=== PATIENT | male | born 1940 | race Two or more races ===

== ENCOUNTER 2019-03-04 13:47 | Inpatient (IN) | payer OTHER ==
[~2019-03-04] VITALS: Ht 157.5 cm; Wt 65.8 kg
--- OUTSIDE RECORDS SUMMARY | 2019-03-04 13:49 | XMS REPORT ---
Author Author [facility] Address Unknown Phone Unavailable Care Team Providers Care Radio Equipment Repairer Name Role Phone Sharon MCCARTNEY Unavailable Unavailable Problems This patient has no known problems. Allergies, Adverse Reactions, Alerts This patient has no known allergies or adverse reactions. Medications This patient has no known medications. Results Test Description Test Time Test Comments Text Results Atomic Results Result Comments TISSUE EXAM 2018-03-27 19:51:00 Surgical Pathology Report Case: [id number] Authorizing Provider: Elmer Mccartney MD Collected: 03/25/2018 0917 Ord ering Location: [facility] Endoscopy Received: 03/25/2018 1542 Services Pathologist: Hilton Mendoza MD Specimens: A) - Duodenum, bx B) - Stomach, bx A. DUODENUM, BIOPSY:- NO DIAGNOSTIC ALTERATIONSB. STOMACH, BIOPSY:- CHRONIC ACTIVE GASTRITIS, MILD TO MODERATE- NEGATIVE FOR HELICOBACTER PYLORI ORGANISMS, BY WARSTEVEN HAY AND IMMUNOHISTOCHEMISTRY Signing Pathologist Direct Phone Line: [phone] signed by Hilton Mendoza MD on 03/27/2018 at 7:51 [id number], [id number] abdominal pain, chronic pancreatitis A. Duodenum biopsy; B. Stomach biopsyThe specimen is received in two containers of formalin both labeled with the patient's information. Part A labeled "duodenum" consists of multiple fragments mulligan tissue ranging from 0.2 to 0.3 cm, submitted A1. Part B labeled "stomach biopsy" consists of multiple fragments of mulligan-red soft tissue ranging from 0.1 to 0.5 cm, submitted B1. CG/pl A-B. Performed.The following special studies were performed on this case and the interpretation is incorporated in the diagnostic report above: Warthin-starry stain (Block B1)- negativeH. Pylori IHC (Block B1)-- negativeThe immunohistochemistry test was developed and its performance characteristics determined by [facility], Pathology Laboratory. It has not been cleared or approved by the U.S. Food and Drug Administration. The FDA has determined that such clearance or approval is not necessary. The test is used for clinical purposes. It should not be regarded as investigational or for research. This laboratory is certified under the Clinical Laboratory Improvement Amendments of 1988 (CLIA-88) as qualified to perform high complexity clinical laboratory testing. POCT-GLUCOSE METER 2018-03-25 09:51:00 POC-GLUCOSE METER ([employer]) (test fjjf=2826) 111 mg/dL 70-110 TESTED AT [place] [address] POCT-GLUCOSE [id number] 08:30:00* Test Item Value Reference Range Comments POC-GLUCOSE METER ([employer]) (test nyxm=7412) 124 mg/dL 70-110 TESTED AT [place] [address]
[2019-03-04] MEDS ORDERED: SODIUM CHLORIDE 0.9% 1000ML 1,000 ML IV STA (14:26)
[2019-03-04] MEDS ORDERED: PANTOPRAZOLE 40 MG 10ML VIAL IV STA (14:26)
[2019-03-04] MEDS ORDERED: ONDANSETRON HCL INJ 2MG/ML 2ML 2 MG/ML VIAL IV STA (14:26)
[2019-03-04] MEDS ORDERED: SODIUM CHLORIDE 0.9% 1000ML 500 ML IV STA (14:26)
[2019-03-04] MEDS ORDERED: MORPHINE SULFATE INJ 4 MG/ML INJ 1ML IV STA (14:26)
[2019-03-04 14:53] LABS: BASOPHILS % 0.4 % (0.0-1.0); EOSINOPHILS # (AUTO) 0.2 (0.0-0.4); EOSINOPHILS % 1.6 % (0.0-6.0); HEMATOCRIT 42.6 % (38.2-49.6); HEMOGLOBIN 13.7 g/dL (14.0-18.0); LYMPHOCYTES # (AUTO) 4.6 (1.0-3.2); LYMPHOCYTES % 48.4 % (18.0-39.1); MEAN CORPUSCULAR HEMOGLOBIN 27.1 pg (28-32); MEAN CORPUSCULAR HGB CONC 32.2 g/dL (31-35); MEAN CORPUSCULAR VOLUME 84.2 fL (81-99); MONOCYTES # (AUTO) 0.5 (0.2-0.8); MONOCYTES % 5.3 % (4.4-11.3); NEUTROPHILS # (AUTO) 4.2 (2.1-6.9); PLATELET COUNT 198 x10e3/uL (140-360); RED BLOOD COUNT 5.06 x10e6/uL (4.3-5.7); RED CELL DISTRIBUTION WIDTH 13.2 % (11.7-14.4)
[2019-03-04 14:55] LABS: BILIRUBIN,URINE NEGATIVE (NEGATIVE); CLARITY,URINE CLEAR (CLEAR); COLOR,URINE YELLOW (YELLOW); KETONES,URINE NEGATIVE (NEGATIVE); LEUKOCYTE ESTERASE ,URINE NEGATIVE (NEGATIVE); NITRITE,URINE NEGATIVE (NEGATIVE); PROTEIN,URINE DIPSTICK NEGATIVE (NEGATIVE); URINE UROBILINOGEN 0.2 mg/dL (0.2 - 1)
[2019-03-04 15:07] LABS: INR 0.87; PROTHROMBIN TIME 12.3 seconds (11.9-14.5)
[2019-03-04 15:08] LABS: PARTIAL THROMBOPLASTIN TIME 32.1 seconds (23.8-35.5)
[2019-03-04 15:16] LABS: ALANINE AMINOTRANSFERASE 13 IU/L (0-55); ALBUMIN/GLOBULIN RATIO 1.3 (0.8-2.0); ALKALINE PHOSPHATASE 60 IU/L (40-150); ANION GAP 12.5 mmol/L (8-16); BLOOD UREA NITROGEN 10 mg/dL (7-26); BUN/CREATININE RATIO 11 (6-25); CARBON DIOXIDE 28 mmol/L (22-29); CHLORIDE 102 mmol/L (98-107); CREATINE KINASE 56 IU/L (30-200); CREATININE, SERUM 0.94 mg/dL (0.72-1.25); EST GLOMERULAR FILTRATION RATE > 60 ML/MIN (60-); GLUCOSE 125 mg/dL (74-118); LIPASE 75 U/L (8-78); POTASSIUM 3.5 mmol/L (3.5-5.1); SODIUM 139 mmol/L (136-145)
[2019-03-04 15:35] LABS: THYROID STIMULATING HORMONE 2.484 uIU/mL (0.350-4.940)
--- NOTE | 2019-03-04 16:54 | Diagnostic Imaging Report ---
EXAM: CT Angiogram Chest, Abdomen, Pelvis WITHOUT and WITH contrast INDICATION: Evaluate for dissection. COMPARISON: None. TECHNIQUE: Chest, abdomen and pelvis were scanned utilizing a multidetector helical scanner from the lung apex through the pubic symphysis before and after administration of IV contrast in arterial phase. Coronal and sagittal reformations were obtained. CT Angiogram protocol was performed. 3D reconstruction was performed and viewed on dedicated workstation. Dose modulation, iterative reconstruction, and/or weight based adjustment of the mA/kV was utilized to reduce the radiation dose to as low as reasonably achievable. IV CONTRAST: 100 mL of Omnipaque 300 RADIATION DOSE: Total DLP: 889.9 mGy*cm COMPLICATIONS: None FINDINGS: VASCULAR FINDINGS: No aortic dissection or aneurysm. Mild aortic atherosclerotic calcifications. No central PE. LINES/ TUBES: None. LUNGS AND AIRWAYS: The central airways are patent. No evidence of pneumonia or pulmonary edema. No suspicious nodules. PLEURA: The pleural spaces are clear. HEART AND MEDIASTINUM: The thyroid gland is normal. No mediastinal, hilar or axillary lymphadenopathy. No cardiomegaly or pericardial effusion. ABDOMEN: There is cholelithiasis without CT evidence of cholecystitis. No focal abnormality in the liver, spleen, pancreas, adrenals, kidneys, pelvic organs. No free air free fluid. No abnormal bowel wall thickening. No bowel obstruction. Normal appendix. BONES/SOFT TISSUES: No acute osseous abnormality. No suspicious lytic or blastic lesion. IMPRESSION: No aortic dissection or aneurysm. No pulmonary embolism. Cholelithiasis without CT evidence of cholecystitis. Signed by: Mariajose Gilbert MD on 03/04/2019 4:51 PM
--- NOTE | 2019-03-04 17:05 | Diagnostic Imaging Report ---
EXAMINATION: CHEST SINGLE (PORTABLE) COMPARISON: None INDICATION: Constipation, belching ^ERMD ORDER ^[id number] ^1600 ^Y DISCUSSION: Frontal view of the chest obtained at 1549 hours. HEART AND MEDIASTINUM: The heart is normal in size. The aortic arch is mildly tortuous LINES: None. LUNGS: The lungs are well inflated and clear. No pneumonia or pulmonary edema. PLEURA: No pleural effusion or pneumothorax. BONES AND SOFT TISSUES: No focal osseous lesion. The soft tissues are normal. Visualized bowel gas pattern is unremarkable. IMPRESSION: No acute cardiopulmonary disease. Signed by: Dr. Tiffanie Maxwell MD on 03/04/2019 5:01 PM
[2019-03-04] MEDS ORDERED: MORPHINE SULFATE 2 MG/ML SYR 1ML IV PRN (19:15)
[2019-03-04] MEDS ORDERED: NITROGLYCERIN 0.4 MG SUBL SL PRN (19:15)
[2019-03-04] MEDS: SODIUM CHLORIDE 0.9% 1000ML 1,000 ML IV SCH (19:17)
[2019-03-04] MEDS ORDERED: FAMOTIDINE 20 MG/2 ML VIAL IV SCH (20:00)
--- NOTE | 2019-03-04 20:27 | Diagnostic Imaging Report ---
HISTORY: ^ABDOMINAL PAIN ^[id number] ^1945 ^Y TECHNIQUE: Selected images from limited abdominal ultrasound provided for INTERPRETATION: COMPARISON: CTA chest, abdomen, pelvis 1606 hours. FINDINGS: Pancreas: Visualized structures are increased in echotexture suggestive of lipomatosis. No mass or ductal dilatation. Liver: Measures 14.1 cm in sagittal plane. The echotexture is normal. No mass in the visualized portions. Portal Vein: Measures 1.0 cm. Proper directional flow on spectral Doppler interrogation. Intrahepatic bile ducts: Normal Gallbladder: Present and contains a nonmobile gallstone in the neck measuring 18 mm. No gallbladder wall thickening or pericholecystic fluid. CBD: 0.4 cm. Right Kidney: 9.5 cm in greatest length. The echotexture is normal. There is no evidence for mass. There is no collecting system dilatation or evidence of obstruction. No renal calculi evident. No adjacent free fluid or fluid collections. Aorta and IVC are not visualized due to bowel gas. There is no free fluid. IMPRESSION: Impacted gallstone in the gallbladder neck. No sonographic evidence of acute cholecystitis. No biliary ductal dilatation. Signed by: Dr. Tiffanie Maxwell MD on 03/04/2019 8:24 PM
[2019-03-04] MEDS ORDERED: DEXTROSE 50% SYRINGE 50 ML IV PRN (21:15)
[2019-03-04 21:28] VITALS: BP 145/69
--- NOTE | 2019-03-04 21:28 | NUR ---
Received report from Annalisa, ER nurse. patient arrived via stretcher. Son and accompanied patient. Patient in no pain. Call light within reach.
[2019-03-04] MEDS ORDERED: SODIUM CHLORIDE 0.9% 100 ML 100 ML ONE (22:37)
[2019-03-04] MEDS ORDERED: IOPAMIDOL 370 MG/ML 200 ML INFUS..BTL INJ ONE (22:37)
[2019-03-04 23:25] VITALS: BP 145/69
[2019-03-05] VITALS (9 sets, daily range): BP systolic 159–197; BP diastolic 77–90
[2019-03-05 00:37] LABS: CREATINE KINASE 134 IU/L (30-200)
[2019-03-05] MEDS: PIPER-TAZ 3.375 GM 50 ML IV SCH ×4 (00:41→22:07)
[2019-03-05 05:28] LABS: BASOPHILS % 0.3 % (0.0-1.0); EOSINOPHILS # (AUTO) 0.2 (0.0-0.4); EOSINOPHILS % 2.5 % (0.0-6.0); HEMATOCRIT 40.6 % (38.2-49.6); HEMOGLOBIN 12.6 g/dL (14.0-18.0); LYMPHOCYTES # (AUTO) 3.5 (1.0-3.2); LYMPHOCYTES % 50.6 % (18.0-39.1); MEAN CORPUSCULAR VOLUME 86.9 fL (81-99); MONOCYTES # (AUTO) 0.5 (0.2-0.8); NEUTROPHILS # (AUTO) 2.7 (2.1-6.9); NEUTROPHILS % 39.5 % (38.7-80.0); PLATELET COUNT 162 x10e3/uL (140-360); RED BLOOD COUNT 4.67 x10e6/uL (4.3-5.7); RED CELL DISTRIBUTION WIDTH 13.3 % (11.7-14.4)
[2019-03-05 05:55] LABS: ALANINE AMINOTRANSFERASE 10 IU/L (0-55); ALBUMIN 3.1 g/dL (3.5-5.0); ALBUMIN/GLOBULIN RATIO 1.1 (0.8-2.0); ALKALINE PHOSPHATASE 50 IU/L (40-150); ANION GAP 10.7 mmol/L (8-16); BLOOD UREA NITROGEN 11 mg/dL (7-26); BUN/CREATININE RATIO 11 (6-25); CALCIUM 8.6 mg/dL (8.4-10.2); CARBON DIOXIDE 26 mmol/L (22-29); CHLORIDE 105 mmol/L (98-107); CHOL/HDL RATIO 3.6 (3.9-4.7); CHOLESTEROL 128 MD/DL (0-199); CREATININE, SERUM 1.02 mg/dL (0.72-1.25); EST GLOMERULAR FILTRATION RATE > 60 ML/MIN (60-); GLUCOSE 246 mg/dL (74-118); HDL CHOLESTEROL 36 MG/DL (40-60); LDL CHOLESTEROL 58 MG/DL (60-130); MAGNESIUM 1.9 MG/DL (1.3-2.1); PHOSPHORUS 3.4 MG/DL (2.3-4.7); POTASSIUM 3.7 mmol/L (3.5-5.1); SODIUM 138 mmol/L (136-145); TRIGLYCERIDES 169 MG/DL (0-149)
[2019-03-05 06:12] LABS: CREATINE KINASE MB 1.4 ng/mL (0-5.0)
[2019-03-05] MEDS ORDERED: SIMVASTATIN20 MG PO (07:19)
[2019-03-05] MEDS ORDERED: CARVEDILOL12.5 MG PO (07:19)
[2019-03-05] MEDS ORDERED: CLOPIDOGREL75 MG PO (07:19)
[2019-03-05] MEDS ORDERED: NOVOLOG MI100 UNIT/1 (07:19)
[2019-03-05] MEDS ORDERED: HYDROCHLOROTH12.5 MG PO (07:19)
[2019-03-05] MEDS ORDERED: LISINOPRIL-HCT1 EACH PO (07:19)
[2019-03-05] MEDS ORDERED: LANTUS 3ML100 UNITS/ (07:19)
--- NOTE | 2019-03-05 07:25 | NUR ---
Gave report to oncoming nurse. Patient in bed. call light within reach.
[2019-03-05] MEDS: SODIUM CHLORIDE 0.9% 1000ML 1,000 ML IV SCH (07:30)
[2019-03-05] MEDS ORDERED: INSULIN REGULAR, HUMAN 100 UNIT/1 ML 3ML VIAL SQ SCH (07:30)
--- NOTE | 2019-03-05 07:34 | NUR ---
Rcvd patient in report this am. Patient is asleep in bed at this time. No s/s of distress noted. Patient is NPO at this time.
[2019-03-05] MEDS ORDERED: AMLODIPINE BESYLATE 10 MG TAB PO ONE (09:00)
[2019-03-05] MEDS ORDERED: DEXTROSE 50% SYRINGE 50 ML IV PRN (09:15)
[2019-03-05] MEDS ORDERED: LISINOPRIL 20 MG TAB PO SCH (09:45)
[2019-03-05] MEDS ORDERED: AMLODIPINE BESYLATE 10 MG TAB PO SCH (09:45)
[2019-03-05] MEDS: PANTOPRAZOLE 40 MG 10ML VIAL IV SCH (09:54)
--- NOTE | 2019-03-05 10:00 | NUR ---
Patient is AAOx3. Patient lung bullard clear to auscultation. Bowel sounds present x4. Patient c/o abdominal pain. No vomiting or diarrhea noted. Patient informed nurse he is bloated and full feeling. Left AC IV in place. IV fluids infusing. NO edema noted. patient ambulates on his own
[2019-03-05] MEDS: METOCLOPRAMIDE HCL 10 MG/2ML VIAL IV SCH ×3 (11:55→22:07)
[2019-03-05] MEDS: HYDRALAZINE HCL 25 MG TAB PO PRN ×3 (11:55→22:11)
[2019-03-05] MEDS: INSULIN LISPRO 100 UNIT/1 ML 3ML VIAL SQ SCH ×3 (11:59→22:06)
--- NOTE | 2019-03-05 12:03 | Diagnostic Imaging Report ---
MRCP (magnetic resonance cholangiopancreatography) HISTORY: Right upper quadrant pain Comparison: RUQ ultrasound of 03/04/19 Technique: Multiplanar and multisequence MRI images of the abdomen were obtained without contrast. Three-dimensional reconstructed images of the biliary tree are also reviewed. FINDINGS: The common bile duct appears normal in caliber. No intrahepatic biliary dilation. No pancreatic ductal dilation. No intrinsic or extrinsic defect is identified within the biliary ducts. Again seen is a 2.4 cm dependent gallstone at the neck of the gallbladder. No gallbladder wall thickening or pericholecystic fluid. No mass is identified in the region of the ampulla or pancreatic head. Unremarkable appearance of the liver, pancreas, spleen, adrenal glands, and kidneys. Left renal cysts. The visualized bowel loops appear normal in caliber. No free fluid or lymphadenopathy is seen within the abdomen. Impression: 2.4 cm gallstone in the gallbladder neck. No gallbladder wall thickening or pericholecystic fluid. No intra or extrahepatic biliary ductal dilation or filling defect. Signed by: Mariajose Gilbert MD on 03/05/2019 12:00 PM
[2019-03-05 13:10] LABS: CREATINE KINASE MB 1.3 ng/mL (0-5.0)
--- NOTE | 2019-03-05 15:34 | History and Physical ---
CONSULTANTS: 1. Luis Angel Dorantes MD. 2. Babatunde Atkins MD. CHIEF COMPLAINT: Abdominal pain, abdominal bloating associated with constipation, diarrhea for 2 years. HISTORY OF PRESENT ILLNESS: This is a 78-year-old male, who has H. pylori diagnosed approximately 2-3 years ago that was subsequently treated. He saw 2 gastroenterologists, first with H. pylori and then subsequently he saw another boats renter and had another EGD, most likely EUS because he mentioned about the pancreas visualization on the ultrasound and that the patient was found to have a low productive enzyme of the pancreas. The patient was given both PPI and subsequent Pancrease enzyme. The patient took off and on the Pancrease enzyme, subsequently has some resolution of his loose stool, but then subsequently got constipation. For the past 6 months or so, he is having recurrent symptoms. He describes it as abdominal bloating, better when he laid down, but then worse when he sits up and driving which caused some problem. He is also having problems with abdominal discomfort and bloating from [id number] causing the patient to have difficulty with his work. The patient came in today because of the abdominal pain. He also has some abdominal distention and gassy symptoms like. He had multiple workup done including thorax CTA, abdominal pelvic CTA, and gallbladder ultrasound. What found is that he has an impacted gallbladder stone at the neck of the gallbladder. The patient is pending to see both boats renter and Surgery for possible gallbladder removal. The patient still has some discomfort. PAST MEDICAL HISTORY: H. pylori infection, reflux, hypertension, diabetes type 2 on insulin therapy, and dyslipidemia. PAST SURGICAL HISTORY: Multiple EGD, cataract surgery. He has a coronary stent due to coronary artery disease remotely. SOCIAL HISTORY: The patient does not smoke or use alcohol. No regular drugs. ALLERGIES: TO NO KNOWN ALLERGIES. HOME MEDICATIONS: Including Coreg, Plavix, HCTZ, Lantus, aspart insulin, lisinopril, and simvastatin. PHYSICAL EXAMINATION: VITAL SIGNS: Temperature is 98, blood pressure 197/86, pulse rate is 50, and respirations 20. GENERAL: The patient is not in acute distress. He is awake. HEENT: Normocephalic and atraumatic. Pupils reactive. Anicteric. NECK: Supple grossly. PULMONARY: Diminished breath sounds. CARDIOVASCULAR: S1 and S2. Regular rate and rhythm. ABDOMEN: Generalized discomfort, some tenderness, some distention without any rebound or guarding. EXTREMITIES: No cyanosis or edema. NEUROLOGIC: No gross focal deficit. LABORATORY DATA: Sodium is 138, potassium 3.7, chloride 105, bicarb 26, BUN 11, creatinine 1.0, and glucose 246. WBC 6.8, hemoglobin 12.6, hematocrit 40.6, and platelets is 162. PT is 12.3, INR 0.87, and PTT 32.1. Alkaline phosphatase is 50, AST is 15, ALT is 10, and total bilirubin 0.3. Multiple imaging done including chest x-ray, chest CT, abdominal pelvic CT, and gallbladder ultrasound, finding of the impacted gallbladder stone at the gallbladder neck. IMPRESSION: 1. Abdominal distention, bloating and pain associated with position, associated with most likely possible symptoms of irritable bowel syndrome versus gallbladder disease with the impacted gallbladder stone. The patient will need further workup. MRCP of the abdomen will be obtained. 2. History of coronary artery disease remotely with coronary stent, on Plavix. 3. Multiple medical problems including hypertension, diabetes type 2, on insulin treatment. 4. Possible gastroparesis given the patient's symptoms of bloating, on eating. PLAN: We will first obtain an MRCP. Resume some patient's home medications. We will hold off the Plavix in case the patient needs surgical intervention. The patient on IV fluids. The patient may have further workup with boats renter. We will obtain 2D echocardiogram. We will get surgical clearance for possible surgical intervention. The patient will be placed on antibiotics which he has already started Zosyn. We will give the patient PPI. A trial Reglan for the nausea. We will continue with n.p.o. except for medication unless there is no surgical intervention today. The patient is otherwise stable. MD JOE Marina/NAOMI /[id number]
--- NOTE | 2019-03-05 16:31 | NUR ---
Patient went for HIDA scan.
--- NOTE | 2019-03-05 18:05 | Consultation ---
DATE OF CONSULTATION: 03/05/2019 Cardiology Consultation REASON FOR CONSULTATION: Mr. Mayberry is a pleasant 78-year-old man, who presented to the emergency room on the with a complaint of abdominal discomfort and nausea. HISTORY OF PRESENT ILLNESS: The patient and his family indicate this has been going on for some time, but seems to be getting worse. PAST MEDICAL HISTORY: Significant for diabetes and hypertension. He had previous cataract surgeries. He had cardiac catheterization in January of 2016, which he had 2 stents placed in his right coronary artery, he denies any chest discomfort since that time, apparently did not have chest discomfort before either, it was done in a preop evaluation. RECENT HOME MEDICATIONS: Include carvedilol 12.5 mg daily, Plavix 75 mg daily, hydrochlorothiazide 12.5 mg daily, Lantus insulin, NovoLog, lisinopril, hydrochlorothiazide, and simvastatin 20 mg daily. PERSONAL AND SOCIAL HISTORY: He does not smoke or drink. PHYSICAL EXAMINATION: GENERAL: At this time shows a pleasant, alert man, who is oriented. VITAL SIGNS: Blood pressure 190/80, pulse 50 and regular. HEAD, EYES, EARS, NOSE, AND THROAT: Unremarkable. NECK: No jugular venous distention. No bruits. THORAX: Heart sounds S1 and S2 are equal. No murmurs. LUNGS: Clear. ABDOMEN: Protuberant. Normal bowel sounds. Mild tenderness diffusely. EXTREMITIES: No cyanosis, clubbing, or edema. LABORATORY DATA: EKG shows sinus bradycardia. Ultrasound of the abdomen shows impacted gallstones. Other laboratory studies remarkable only for glucose 246. ASSESSMENT: 1. Gallbladder disease. 2. Cardiac status clinically stable. 3. Hypertension. 4. Diabetes. PLAN: Recommend holding aspirin and Plavix and he has a standard cardiac risk. Thank you for asking me to see him in consultation. MD MAREK Castro/MODL /[id number] cc: Babatunde Atkins MD
--- NOTE | 2019-03-05 19:00 | NUR ---
RECEIVED PATIENT IN BEDSIDE SHIFT REPORT. PATIENT REPORTS SOME PAIN TO NECK AND REQUESTS WARM COMPRESS. NO S&S OF DISTRESS NOTED. BED LOCKED IN LOWEST POSITION, SIDE RAILS UPX2, CALL LIGHT IN REACH.
--- NOTE | 2019-03-05 19:00 | Diagnostic Imaging Report ---
Hepatobiliary Scan with Gallbladder Ejection Fraction Clinical information: Chronic abdominal pain with bloating Technique: Following intravenous administration of 6.4 millicuries of Tc-99m mebrofenin, dynamic images of the abdomen in the anterior projection were obtained through 30 minutes. Sincalide (CCK analog) 1.5 micrograms was administered intravenously over 30 minutes with additional imaging for determination of gallbladder ejection fraction. Discussion: Perfusion of the liver is normal. Extraction of tracer by the liver parenchyma is normal. Tracer appears promptly within the biliary tract. The gallbladder begins to fill by 8 minutes post injection of tracer and fills adequately. Tracer is seen in the small bowel during the sincalide infusion. The gallbladder ejection fraction with sincalide is 33% (normal greater than 40%). Impression: 1. Filling of the gallbladder excludes acute cystic duct obstruction/acute cholecystitis. 2. The decreased gallbladder ejection fraction of 33% supports the clinical diagnosis of chronic cholecystitis/gallbladder dyskinesia. Signed by: Dr. Ashlyn Franco M.D. on 03/05/2019 6:56 PM
[2019-03-05] MEDS: ONDANSETRON HCL INJ 2MG/ML 2ML 2 MG/ML VIAL IV PRN (20:39)
[2019-03-05] MEDS ORDERED: INSULIN GLARGINE SC SCH (21:00)
[2019-03-05] MEDS: INSULIN GLARGINE 100 UNITS/ML VIAL SQ SCH (22:06)
[2019-03-06] VITALS (8 sets, daily range): BP systolic 125–189; BP diastolic 59–89
[2019-03-06 05:56] LABS: BASOPHILS % 0.2 % (0.0-1.0); EOSINOPHILS # (AUTO) 0.1 (0.0-0.4); EOSINOPHILS % 0.9 % (0.0-6.0); HEMATOCRIT 47.4 % (38.2-49.6); HEMOGLOBIN 14.5 g/dL (14.0-18.0); LYMPHOCYTES # (AUTO) 3.9 (1.0-3.2); LYMPHOCYTES % 35.1 % (18.0-39.1); MEAN CORPUSCULAR HEMOGLOBIN 26.7 pg (28-32); MEAN CORPUSCULAR HGB CONC 30.6 g/dL (31-35); MEAN CORPUSCULAR VOLUME 87.3 fL (81-99); MONOCYTES # (AUTO) 0.4 (0.2-0.8); MONOCYTES % 3.5 % (4.4-11.3); NEUTROPHILS # (AUTO) 6.7 (2.1-6.9); NEUTROPHILS % 59.9 % (38.7-80.0); PLATELET COUNT 225 x10e3/uL (140-360); RED BLOOD COUNT 5.43 x10e6/uL (4.3-5.7); RED CELL DISTRIBUTION WIDTH 13.2 % (11.7-14.4)
[2019-03-06 06:12] LABS: INR 0.99; PROTHROMBIN TIME 13.6 seconds (11.9-14.5)
[2019-03-06 06:13] LABS: PARTIAL THROMBOPLASTIN TIME 34.3 seconds (23.8-35.5)
[2019-03-06] MEDS: PIPER-TAZ 3.375 GM 50 ML IV SCH ×3 (06:13→21:56)
[2019-03-06] MEDS: LISINOPRIL 20 MG TAB PO SCH (06:23)
[2019-03-06 06:38] LABS: ANION GAP 16.5 mmol/L (8-16); BLOOD UREA NITROGEN 8 mg/dL (7-26); BUN/CREATININE RATIO 8 (6-25); CALCIUM 9.7 mg/dL (8.4-10.2); CARBON DIOXIDE 24 mmol/L (22-29); CHLORIDE 105 mmol/L (98-107); CREATININE, SERUM 1.04 mg/dL (0.72-1.25); EST GLOMERULAR FILTRATION RATE > 60 ML/MIN (60-); GLUCOSE 113 mg/dL (74-118); POTASSIUM 3.5 mmol/L (3.5-5.1); SODIUM 142 mmol/L (136-145)
[2019-03-06] MEDS: INSULIN LISPRO 100 UNIT/1 ML 3ML VIAL SQ SCH ×4 (07:30→21:59)
[2019-03-06] MEDS: METOCLOPRAMIDE HCL 10 MG/2ML VIAL IV SCH ×4 (08:04→21:56)
[2019-03-06] MEDS: PANTOPRAZOLE 40 MG 10ML VIAL IV SCH (08:04)
--- NOTE | 2019-03-06 08:06 | NUR ---
PAGED MD REYNOLDS FOR ORDERS ON HIGH BP THIS AM AND PT NPO STATUS AWAITING FOR CALL BACK
[2019-03-06] MEDS ORDERED: BUPIVACAINE 0.5%/EPI 30 ML SDV INJ ONE (08:28)
[2019-03-06] MEDS ORDERED: HYDRALAZINE HCL 20 MG/ML VIAL IV NR (08:30)
--- NOTE | 2019-03-06 08:37 | NUR ---
pt off unit at this time to OR for procedure
[2019-03-06] MEDS ORDERED: SODIUM CHLORIDE 0.9% 1000ML 1,000 ML IV SCH (10:36)
[2019-03-06] MEDS ORDERED: HYDROCODONE/APAP 7.5MG-325MG 1 EA TAB PO PRN (10:45)
[2019-03-06] MEDS ORDERED: ONDANSETRON HCL INJ 2MG/ML 2ML 2 MG/ML VIAL IV PRN (10:45)
[2019-03-06] MEDS ORDERED: HYDROMORPHONE 1MG/1ML INJ IV PRN ×2 (10:45→20:30)
[2019-03-06] MEDS ORDERED: PANTOPRAZOLE 40 MG 10ML VIAL IV SCH (10:45)
[2019-03-06] MEDS ORDERED: ACETAMINOPHEN 1000 MG/100 ML 100 ML IV ONE (10:56)
[2019-03-06] MEDS ORDERED: FENTANYL CITRATE/PF 100MCG/2 ML INJ ONE ×2 (10:56→15:27)
--- NOTE | 2019-03-06 11:18 | NUR ---
RECEIVED REPORT FROM KAREN IN PACU PT HAD A LAP CL WITH UMBLICAL HERNIA REPAIR AWAITING FOR TO TO ARRIVE TO FLOOR
[2019-03-06] MEDS ORDERED: HYDRALAZINE HCL 20 MG/ML VIAL IV PRN (11:45)
[2019-03-06] MEDS ORDERED: MIDAZOLAM HCL 2 MG/2 ML VIAL ONE (15:27)
[2019-03-06] MEDS ORDERED: LIDOCAINE HCL 2% LOCAL INJ 5 ML SDV VIAL INJ ONE (15:45)
[2019-03-06] MEDS ORDERED: GLYCOPYRROLATE INJ 1MG/ 5 ML SYR ONE (15:45)
[2019-03-06] MEDS ORDERED: ONDANSETRON HCL INJ 2MG/ML 2ML 2 MG/ML VIAL ONE (15:45)
[2019-03-06] MEDS ORDERED: DEXAMETHASONE SOD PHOS INJ 4 MG/ML VIAL ONE (15:45)
[2019-03-06] MEDS ORDERED: PHENYLEPHRINE HCL 1% 10 MG/ML VIAL ONE (15:45)
[2019-03-06] MEDS ORDERED: ROCURONIUM BROMIDE 10 MG/ML 5ML VIAL ONE (15:45)
[2019-03-06] MEDS ORDERED: NEOSTIGMINE 5 MG/5ML SYR ONE (15:45)
[2019-03-06] MEDS ORDERED: SEVOFLURANE INHAL SOLN 250 ML PEN BTL ONE (15:45)
[2019-03-06] MEDS ORDERED: PROPOFOL IV EMULSION 10 MG/ML 20 ML VIAL ONE (15:45)
--- NOTE | 2019-03-06 19:00 | NUR ---
RECEIVED PATIENT IN BEDSIDE SHIFT REPORT. NO PAIN REPORTED. NO S&S OF DISTRESS NOTED. BED LOCKED IN LOWEST POSITION, SIDE RAILS UPX2, CALL LIGHT IN REACH.
--- NOTE | 2019-03-06 19:11 | NUR ---
bladder scan done 220 noted bladder is soft no tenderness noted pt c.o bleeding with urination (muse cath was placed in or) pt voided after sx once already no concerns at this time report given to accounting advisory services manager
--- NOTE | 2019-03-06 19:41 | NUR ---
SPOKE WITH LAB STAFF CONCERNING STAT LAB ORDERS FOR ESR, CRP, AND IBD. [employer] WILL BE HERE TOMORROW TO CONTR[employer]ER CO[employer] OR [employer]RE SAMPLES SO BLOOD WILL BE DRAWN IN THE MORNING FOR THESE LABS.
[2019-03-06] MEDS: ONDANSETRON HCL INJ 2MG/ML 2ML 2 MG/ML VIAL IV PRN (20:42)
[2019-03-06] MEDS: INSULIN GLARGINE 100 UNITS/ML VIAL SQ SCH (21:59)
[2019-03-07] VITALS (7 sets, daily range): BP systolic 109–168; BP diastolic 53–76
[2019-03-07] MEDS: PIPER-TAZ 3.375 GM 50 ML IV SCH ×3 (05:50→22:00)
[2019-03-07] MEDS: AMLODIPINE BESYLATE 10 MG TAB PO SCH (05:50)
[2019-03-07 05:53] LABS: BASOPHILS % 0.2 % (0.0-1.0); HEMATOCRIT 42.6 % (38.2-49.6); HEMOGLOBIN 13.2 g/dL (14.0-18.0); LYMPHOCYTES # (AUTO) 3.2 (1.0-3.2); LYMPHOCYTES % 25.9 % (18.0-39.1); MEAN CORPUSCULAR HEMOGLOBIN 26.9 pg (28-32); MEAN CORPUSCULAR VOLUME 86.8 fL (81-99); MONOCYTES # (AUTO) 0.9 (0.2-0.8); MONOCYTES % 7.6 % (4.4-11.3); NEUTROPHILS # (AUTO) 8.1 (2.1-6.9); NEUTROPHILS % 65.9 % (38.7-80.0); PLATELET COUNT 182 x10e3/uL (140-360); RED BLOOD COUNT 4.91 x10e6/uL (4.3-5.7); RED CELL DISTRIBUTION WIDTH 13.5 % (11.7-14.4)
[2019-03-07 06:32] LABS: ALBUMIN 3.6 g/dL (3.5-5.0); ALBUMIN/GLOBULIN RATIO 1.1 (0.8-2.0); ANION GAP 13.7 mmol/L (8-16); CALCIUM 9.5 mg/dL (8.4-10.2); CREATININE, SERUM 1.18 mg/dL (0.72-1.25); POTASSIUM 3.7 mmol/L (3.5-5.1)
[2019-03-07] MEDS: LISINOPRIL 20 MG TAB PO SCH (08:28)
[2019-03-07] MEDS: INSULIN LISPRO 100 UNIT/1 ML 3ML VIAL SQ SCH ×4 (08:28→21:00)
[2019-03-07] MEDS: METOCLOPRAMIDE HCL 10 MG/2ML VIAL IV SCH (08:28)
[2019-03-07] MEDS: PANTOPRAZOLE 40 MG 10ML VIAL IV SCH (08:44)
[2019-03-07] MEDS ORDERED: PANTOPRAZOLE 40 MG 10ML VIAL IV SCH (09:00)
--- NOTE | 2019-03-07 09:29 | NUR ---
Spoke w/ Dr. Morris. He stated he will dc pt home today. No needs from CM
[2019-03-07] MEDS: DICYCLOMINE HCL 10 MG CAP PO SCH ×2 (12:32→17:01)
[2019-03-07] MEDS: HYDROCODONE/APAP 7.5MG-325MG 1 EA TAB PO PRN ×2 (13:04→21:06)
[2019-03-07] MEDS: HYDRALAZINE HCL 25 MG TAB PO PRN (13:04)
--- NOTE | 2019-03-07 19:49 | NUR ---
RECEIVED PT IN BED AOX3 DENIES PAIN NOW RESPIRATIONS ARE EVEN AND UNLABORED .PT HAS HAS 4 TROCHANTER SITE AT THE ABDOMEN .LEFT AC 20 G NS S/L .CALL LIGHT WITH IN REACH .CONTINUE TO MONITOR
[2019-03-07] MEDS: INSULIN GLARGINE 100 UNITS/ML VIAL SQ SCH (21:00)
[2019-03-08] VITALS: BP 177/76
[2019-03-08] MEDS: PIPER-TAZ 3.375 GM 50 ML IV SCH (05:47)
[2019-03-08] MEDS: AMLODIPINE BESYLATE 10 MG TAB PO SCH (06:00)
[2019-03-08 06:20] VITALS: BP 169/73
[2019-03-08 06:44] LABS: BASOPHILS % 0.2 % (0.0-1.0); EOSINOPHILS # (AUTO) 0.1 (0.0-0.4); EOSINOPHILS % 1.6 % (0.0-6.0); HEMATOCRIT 39.5 % (38.2-49.6); HEMOGLOBIN 12.2 g/dL (14.0-18.0); LYMPHOCYTES # (AUTO) 3.3 (1.0-3.2); LYMPHOCYTES % 38.5 % (18.0-39.1); MEAN CORPUSCULAR HEMOGLOBIN 27.3 pg (28-32); MEAN CORPUSCULAR HGB CONC 30.9 g/dL (31-35); MEAN CORPUSCULAR VOLUME 88.4 fL (81-99); MONOCYTES # (AUTO) 0.8 (0.2-0.8); MONOCYTES % 9.7 % (4.4-11.3); NEUTROPHILS # (AUTO) 4.3 (2.1-6.9); NEUTROPHILS % 49.8 % (38.7-80.0); PLATELET COUNT 156 x10e3/uL (140-360); RED BLOOD COUNT 4.47 x10e6/uL (4.3-5.7); RED CELL DISTRIBUTION WIDTH 13.8 % (11.7-14.4)
[2019-03-08 06:59] LABS: ALANINE AMINOTRANSFERASE 48 IU/L (0-55); ALBUMIN 3.2 g/dL (3.5-5.0); ALKALINE PHOSPHATASE 47 IU/L (40-150); ANION GAP 13.7 mmol/L (8-16); BLOOD UREA NITROGEN 8 mg/dL (7-26); BUN/CREATININE RATIO 9 (6-25); CALCIUM 9.1 mg/dL (8.4-10.2); CARBON DIOXIDE 23 mmol/L (22-29); CHLORIDE 105 mmol/L (98-107); CREATININE, SERUM 0.86 mg/dL (0.72-1.25); EST GLOMERULAR FILTRATION RATE > 60 ML/MIN (60-); GLUCOSE 124 mg/dL (74-118); POTASSIUM 3.7 mmol/L (3.5-5.1); SODIUM 138 mmol/L (136-145)
--- NOTE | 2019-03-08 07:20 | NUR ---
PT RESTED DURING THE NIGHT . C/O PAIN AND GIVEN NORCO.CALL LIGHT WITH IN REACH .CONTINUE TO MONITOR .BEDSIDE REPORT GIVEN TO THE ONCOMING NURSE
[2019-03-08] MEDS: LISINOPRIL 20 MG TAB PO SCH (08:30)
[2019-03-08] MEDS: INSULIN LISPRO 100 UNIT/1 ML 3ML VIAL SQ SCH ×2 (08:30→12:30)
[2019-03-08] MEDS: DICYCLOMINE HCL 10 MG CAP PO SCH ×2 (08:40→12:30)
[2019-03-08 08:43] VITALS: BP 135/64
--- NOTE | 2019-03-08 11:00 | NUR ---
PT MADE AWARE PER MD ORDER, HE IS TO BE DISCHARGED AFTER LUNCH AND ORDNANCE MECHANIC TO SEE FIRST, PT AND SON VERBALIZED UNDERSTANDING
--- NOTE | 2019-03-08 11:07 | NUR ---
RADIOLOGY PRACTITIONER ASSISTANT INTO SEE PT,
[2019-03-08] MEDS ORDERED: NORVASC5 MG PO (11:11)
[2019-03-08] MEDS ORDERED: DICYCLOMINE HCL10 MG PO (11:12)
[2019-03-08] MEDS ORDERED: TYLENOL WITH C1 EACH PO (11:13)
[2019-03-08] MEDS ORDERED: ZOFRAN4 MG PO (11:13)
--- NOTE | 2019-03-08 12:02 | NUR ---
MD EVERETT INTO SEE PT, MADE AWARE THAT PT IS DISCHARGING
[2019-03-08] MEDS: HYDROCODONE/APAP 7.5MG-325MG 1 EA TAB PO PRN (12:52)
[2019-03-08 12:59] VITALS: BP 173/59
--- NOTE | 2019-03-08 12:59 | NUR ---
Nutrition Screen Note RD Recommendation for Physician: - ADAT to 1800 ADA, low fat, GI Soft Plan of Care: RD following, monitoring for tolerance and adequacy - Diet education provided 03/08 Nutrition reason for involvement: MD Consult-no reason list, RN reports post cholecystectomy diet education Primary Diagnose(s): abdominal pain, chest pain, cholelithiasis PMH: DM2, HTN, h. pylori, CAD with stent Ht: 62 in Wt: 145 lb BMI: 26.5 kg/m2 IBW: [address] Assessment: (03/08) 78 YOM admitted for abdominal pain and cholelithiasis requiring cholecystectomy. Pt seen today per MD consult- RN reports that it is for post op diet education. Pt discussed during am rounds, pt to discharge today. Pt and son receptive to diet education at time of visit. Discussed foods to avoid and discussed diabetic diet guidelines per pt request. All questions and concerns addressed at time of visit. Chart reviewed. Labs and meds reviewed. Will monitor and continue to follow. Current Diet: Full liquids Malnutrition Evaluation (03/08/19) The patient does not meet criteria for a specified degree of malnutrition at this time. Will re-evaluate at follow-up as appropriate. Diet Education Needs Assessment: Diet education indicated, pt receptive- diet education provided 03/08. Learner(s): pt, pt's son Barriers: none Cultural/Language Modifications: none Readiness: eager Method: handout, discussion Topics: DM2 nutrition therapy, post cholecystectomy diet restrictions- emphasized fiber, fat, spicy foods, and caffeine Understanding/Compliance: good Diet tolerance: tolerating full liquids Nutrition Care Level: Low Signed: Ailyn Mac RD, LD, [facility]
--- NOTE | 2019-03-08 13:47 | NUR ---
DISCHARGE INSTRUCTIONS REVIEWED WITH PT, VERBALIZED UNDERSTANDING, WHEELED OFF UNIT VIA WC FOR DISCHARGE, NO CHANGE IN CONDITION
--- NOTE | 2019-03-09 00:11 | Discharge Summary ---
CONSULTANTS: 1. Dr. Babatunde Atkins. 2. Dr. Morgan Wilson. 3. Dr. Luis Angel Dorantes. FINAL DIAGNOSES: 1. Large gallstone at the gallbladder neck, associated with abdominal pain, bloating, most likely nausea and vomiting with eating. 2. Status post laparoscopic cholecystectomy done by Dr. Babatunde Atkins. 3. Hypertension with elevated blood pressure. 4. History of coronary artery disease. The patient was cleared for surgery by Dr. Morgan Wilson. DISCHARGE MEDICATIONS: 1. Resume home medications. 2. Norvasc 5 mg daily. 3. Bentyl 10 mg before meals. 4. Zofran ODT 4 mg q.4 p.r.n. for nausea and vomiting. 5. Tylenol No. 3 one q.6 p.r.n. for pain. HISTORY: This is a 78-year-old male, who has a GI problem for the past month. The patient had extensive workup in the past with both his mfg assoc. The patient had an endoscopy done, biopsy done, and he was treated for H pylori infection as well. The patient came in with the same problem, bloating and nausea and vomiting after eating. The patient also has some stool problem off and on between loose stools and constipation. The patient had multiple workup done. He was found to have a large gallstone in the gallbladder neck. The patient was stable. Option was given to the patient and he opted for a laparoscopic cholecystectomy done subsequently by Dr. Babatunde Atkins. Postop, the patient had some anxiety, almost like a panic attack, shakiness, some neck issue, not pain, but some discomfort. The patient has full range of motion. Workup otherwise unremarkable. Repeated lab work; sodium is 138, potassium 3.7, chloride 105, bicarb 23, BUN is 8, creatinine 0.8, glucose 124. WBC is 8.6, hemoglobin 12, hematocrit 39, and platelets 156. AST 52, ALT 48, alkaline phosphatase 47, total bilirubin 0.7. The patient is otherwise stable. He is tolerating full liquid diet and advance his diet today. Once he is able to tolerate his diet, he will be going home. The patient is otherwise stable. I explained the patient to continue to follow up with Dr. Babatunde Atkins for postoperative care and that he may follow up with Dr. Luis Angel Dorantes, his mfg assoc for management of his symptoms if not improved. The patient will see a dietitian prior to his discharge. The patient is otherwise stable, discharged home today, and follow up as instructed. MD JOE Marina/NAOMI /[id number]
--- NOTE | 2019-03-18 16:58 | Operative Report ---
DATE OF PROCEDURE: SURGEON: Babatunde Atkins MD INDICATIONS AND FINDINGS: The patient is a 78-year-old male, admitted to the hospital because of progressively worse abdominal pain. The patient has a complicated history of multiple GI problems mainly bloating associated with severe abdominal pain at times as well as shortness of breath. The patient was admitted to Dr. Skelton's service from the emergency room. During the hospitalization, he underwent extensive GI workup. He was seen and evaluated by Cardiology and cleared for surgery. The patient was evaluated by GI. He had an ultrasound of the gallbladder that revealed stone in the neck of the gallbladder, large. This was confirmed by MRCP, there was no choledocholithiasis. The patient had a HIDA scan that revealed an ejection fraction of 33%. He had seen in the past on multiple occasions by different gastroenterologists and he really was never diagnosed with a specific entity. The patient preoperatively was advised that he needed to have cholecystectomy, however, this was clearly explained to him, his and his son. I could not guarantee that the pain would necessarily resolve or the symptoms will completely resolve as a result of cholecystectomy, even though was indicated. They indicated understanding and wished to proceed with cholecystectomy. INTRAOPERATIVE FINDINGS: The patient had cholelithiasis. There was evidence of chronic cholecystitis. There were multiple adhesions of the gallbladder to the colon, stomach, and omentum. There was no ductal dilatation. DESCRIPTION OF PROCEDURE: With the patient lying on the operative table in the supine position after administration of general endotracheal anesthesia, he was prepped and draped for laparoscopic cholecystectomy. The procedure was begun by establishing the pneumoperitoneum in the umbilical site after stab wound was made in that location and the saline drop test was performed. Pneumoperitoneum was insufflated to 15 mm of pressure and then, the 10/11 trocar was placed in that location. The patient rotated to the left and with the head up, we placed a 10 mm subxiphoid port as well as 2 lateral working ports, 5 mm each in the right midclavicular line and right anterior axillary line. The gallbladder was then retracted cephalad. Adhesions as previously described were sharply lysed exposing the hepatorenal ligament. At that point, then we began the dissection high on the neck of the gallbladder until we identified the common duct. We identified the cystic artery and a plate of the liver. At this point, then we transected the cystic duct distally 3 times, once proximally and transected as well as the cystic artery. Then, we proceeded by mobilization of the gallbladder along the liver bed using electrocautery, traction countertraction. Once we detached the gallbladder, it was removed through the umbilical port. We reinstituted the pneumoperitoneum and irrigated the operative field, the gallbladder fossa, right upper quadrant. There was no bleeding. After ascertaining that the hemostasis was absolute, we closed the wound using 0 Vicryl for the umbilical fascia, 3-0 Vicryl for the subcutaneous tissue in that location as well as the subxiphoid port and the skin of all the ports was closed with thomas. A 0.25% Marcaine with epinephrine was given as local block at the end of the case. MD PABLO Chow/MODL /[id number]
== END 2019-03-08 13:41 | disposition home or self-care (01) | DRG 419 ==
LOC: ER 13:47 → ERHOLD 19:13 → MED/SURG 21:31 → OBSVTOIN 03-05 09:02
PROVIDERS: ADMIT Internal Medicine; ATTEND Internal Medicine
PROC: 0FT44ZZ Resection of Gallbladder, Percutaneous Endoscopic Approach (ICD-10-PCS; principal; 2019-03-06 09:00)
DX: K80.10 Calculus of gallbladder with chronic cholecystitis without obstruction (principal); I10 Essential (primary) hypertension; I25.10 Atherosclerotic heart disease of native coronary artery without angina pectoris; Z95.5 Presence of coronary angioplasty implant and graft; Z79.4 Long term (current) use of insulin; F41.9 Anxiety disorder, unspecified; E11.43 Type 2 diabetes mellitus with diabetic autonomic (poly)neuropathy; K31.84 Gastroparesis; R25.1 Tremor, unspecified
CPT/HCPCS: 36415; 71045; 71275; 74174; 74181; 76705; 78227; 80048; 80053; 80061; 81001; 82550; 82553; 82948; 83690; 83735; 83880; 84100; 84443; 84484; 85025; 85610; 85651; 85730; 86140; 86256; 86671; 87040; 87086; 88304; 93005; 93306; 99284; A9537; C1766; G0378; J0360; J1100; J1170; J1815; J1817; J2001; J2250; J2270; J2370; J2405; J2543; J2765; J3010; J7030; Q9967